=== PATIENT | female | born 1975 | race Caucasian/White ===

== ENCOUNTER 2019-04-21 22:02 | Emergency (ER) | payer OTHER ==
[~2019-04-21] VITALS: Ht 175.3 cm; Wt 90.7 kg
[2019-04-21 22:13] VITALS: BP 137/81
[2019-04-21] MEDS ORDERED: DIFLUCAN150 MG PO (22:34)
[2019-04-21] MEDS ORDERED: KEFLEX500 M1 PO (22:34)
== END 2019-04-21 22:59 | disposition home or self-care (01) ==
LOC: M.ERS 22:02
DX: S91.332A Puncture wound without foreign body, left foot, initial encounter (principal); S91.331A Puncture wound without foreign body, right foot, initial encounter; Z90.710 Acquired absence of both cervix and uterus; W45.0XXA Nail entering through skin, initial encounter; Y93.89 Activity, other specified; Y92.89 Other specified places as the place of occurrence of the external cause; Y99.8 Other external cause status